=== PATIENT | male | born 1955 | race Two or more races ===

== ENCOUNTER 2022-11-05 09:11 | Emergency (ER) | payer OTHER ==
[2022-11-05 09:25] VITALS: BMI 25.0
[2022-11-05] MEDS ORDERED: ACETAMINOPHEN 1000 MG/100 ML BAG IVPB ONE (10:02)
[2022-11-05] MEDS ORDERED: ONDANSETRON 4 MG/2 ML VIAL IVPUSH ONE (10:09)
[2022-11-05] MEDS ORDERED: ACETAMINOPHEN INJECTION 100 ML IVPB ONE (10:13)
[2022-11-05] MEDS ORDERED: ONDANSETRON 4 MG/2 ML VIAL ONE (10:13)
[2022-11-05 12:27] VITALS: BP 157/82; PULSE 72; RESP 16; TEMP 97.9
[2022-11-05 12:34] LABS: BASO % 0.2 % (0-2.0); HEMATOCRIT 48.6 % (35.4-49); HEMOGLOBIN 17.1 GM/dL (11.7-16.9); LYMPH % 11.6 % (8-40); MCH 31.9 pg (25.7-33.7); MCHC 35.2 g/dl (32.0-35.9); MEAN CELL VOLUME 90.6 fl (80-96); MEAN PLT VOLUME 7.8 fl (7.5-11.1); MONO % 5.6 % (3.8-10.2); NEUT % 82.6 % (42.8-82.8); PLATELET COUNT 259 10^3/uL (134-434); RBC 5.37 M/mm3 (4.00-5.60); RDW 13.8 % (11.9-15.9); WHITE BLOOD COUNT 7.9 K/mm3 (4.0-10.0)
[2022-11-05 12:35] LABS: MAGNESIUM 2.4 mg/dL (1.8-2.4)
[2022-11-05 12:37] LABS: BLOOD UREA NITROGEN 14.5 mg/dL (7-18)
[2022-11-05 12:39] LABS: CREATININE 0.8 mg/dL (0.55-1.3)
[2022-11-05 12:40] LABS: TOT PROT 7.2 g/dl (6.4-8.2)
== END 2022-11-05 12:43 | disposition short-term general hospital (02) ==
LOC: JER 09:11
PROC: 3E033NZ Introduction of Analgesics, Hypnotics, Sedatives into Peripheral Vein, Percutaneous Approach (ICD-10-PCS; principal; 2022-11-05)
PROC: 3E033GC Introduction of Other Therapeutic Substance into Peripheral Vein, Percutaneous Approach (ICD-10-PCS; 2022-11-05)
DX: R53.83 Other fatigue (principal); R41.82 Altered mental status, unspecified; R51.9 Headache, unspecified; R26.2 Difficulty in walking, not elsewhere classified; R11.0 Nausea; S06.5X0A Traumatic subdural hemorrhage without loss of consciousness, initial encounter; W01.198A Fall on same level from slipping, tripping and stumbling with subsequent striking against other object, initial encounter; Z20.822 Contact with and (suspected) exposure to COVID-19
CPT/HCPCS: 0241U-QW; 36415; 70450-TC; 71045-TC-FY; 80053; 80061; 83036; 83735; 84484; 85025; 93005; 93010; 99291